=== PATIENT | male | born 1990 | race Two or more races ===

== ENCOUNTER 2021-02-26 07:37 | Emergency (ER) | payer SELFPAY ==
[~2021-02-26] VITALS: Ht 185.4 cm; Wt 90.7 kg
[2021-02-26] MEDS ORDERED: ONDANSETRON HCL INJ 2MG/ML 2ML 2 MG/ML VIAL IV STA (08:02)
[2021-02-26] MEDS ORDERED: KETOROLAC TROMETHAMINE 30 MG/ML VIAL IV STA (08:11)
[2021-02-26] MEDS ORDERED: FAMOTIDINE 20 MG/2 ML VIAL IV STA (08:12)
[2021-02-26] MEDS ORDERED: SODIUM CHLORIDE 0.9% 1000ML 1,000 ML IV SCH (08:15)
[2021-02-26] MEDS ORDERED: SODIUM CHLORIDE 0.9% 1000ML 1,000 ML ONE (08:40)
[2021-02-26] MEDS ORDERED: ONDANSETRON HCL INJ 2MG/ML 2ML 2 MG/ML VIAL ONE (08:40)
[2021-02-26] MEDS ORDERED: FAMOTIDINE 20 MG/2 ML VIAL IV ONE (08:40)
[2021-02-26] MEDS ORDERED: ONDANSETRON ODT4 MG PO (09:33)
[2021-02-26] MEDS ORDERED: IBUPROFEN600 MG PO (09:34)
[2021-02-26 09:49] VITALS: BP 119/78
== END 2021-02-26 09:57 | disposition home or self-care (01) ==
LOC: FSED 08:00
DX: R05 Cough (principal); R11.2 Nausea with vomiting, unspecified; B34.9 Viral infection, unspecified; R52 Pain, unspecified; R73.9 Hyperglycemia, unspecified
CPT/HCPCS: 71046; 80053; 81003; 85025; 96374; 96375; 96376; 99284; J1885; J2405; J7030